=== PATIENT | male | born 2000 | race Caucasian/White ===

== ENCOUNTER 2018-05-12 18:48 | Emergency (ER) | payer SELFPAY ==
--- NOTE | 2018-05-12 19:30 | ED Physician Documentation ---
Sore Throat/Dental Pain - HISTORIAN Historian: patient, friend - HPI Stated Complaint: Rt ear pain/sore throat Chief Complaint: Sore Throat Onset: days ago (3) Context: denies: Foreign Body, Fractured Tooth, Abscess Associated Symptoms: fever, chills, sore throat, mild, other (occ diarrhea soft brown occ liquid). denies: runny nose, congestion, R ear pain, L ear pain - ROS CONST: no problems. denies: recent illness, eye redness, eye itching CVS/RESP: none. denies: chest pain, shortness of breath, palpitations GI/: denies: problems urinating, nausea, vomiting NEURO/PSYCH: none. denies: headache, anxiety - PAST HX Past History: other (bronchitis strept throat) Immunizations: UTD Allergies/Adverse Reactions: Allergies Allergy/AdvReac Type Severity Reaction Status Date / Time No Known Allergies Allergy Verified 05/12/18 19:23 Home Medications: Ambulatory Orders Medication Instructions Recorded NK 05/12/18 - SOCIAL HX Smoking History: cigarettes Alcohol Use: none Drug Use: none - FAMILY HX Family History: No - VITAL SIGNS Vital Signs: Vital Signs Temp Pulse Resp BP Pulse Ox 98.5 F 64 14 112/68 97 05/12/18 18:49 05/12/18 20:49 05/12/18 20:49 05/12/18 20:49 05/12/18 20:49 - REVIEWED ASSESSMENTS Nursing Assessment Reviewed: Yes Vitals Reviewed: Yes ED Results Lab/Radiology - Lab Results Lab Results: Lab Results 05/12/18 19:28 Group A Strep Screen Negative (NEGATIVE) - Radiology Radiology Impressions: RAPID STRET = NEG - Orders Orders: ED Orders Category Date Time Status Rapid Strep [GRP A STREP SCREEN] Stat Lab 05/12/18 19:28 Completed THROAT CULTURE Stat Lab 05/12/18 19:28 Completed Sore throat Physical Exam - EXAM General Appearance: mild distress Head/Neck: head nml inspection Eyes: eyes nml inspection, PERRL, pain of sinuses Mouth/Throat: lips nml, gums nml, pharynx nml, no air way problems Ear/Nose: nml inspection. No: TM erythema, loss of TM landmarks Respiratory: breath sounds nml. No: no resp. distress, respiratory distress CVS: reg. rate & rhythm, heart sounds nml Abdomen: soft, non-tender Extremities: non-tender, nml ROM Skin: warm/dry, normal color. No: cyanosis, diaphoresis, jaundice Neuro/Psych: oriented x3 Discharge Clincal Impression: VIRAL PHARYGITIS Referrals: Primary Doctor,No [Primary Care Provider] - 2 Days Comments: HOME FLUIDS REST AVOID [id number] EXPOSURE Condition: Good Disposition: 01 HOME, SELF-CARE Decision to Admit: NO Decision Time: 20:15
[2018-05-12 20:53] VITALS: BP 112/68
== END 2018-05-12 20:15 | disposition home or self-care (01) ==
LOC: ED 18:48
DX: J02.8 Acute pharyngitis due to other specified organisms (principal); Z72.0 Tobacco use
CPT/HCPCS: 87070; 87880; 99282; 99283

== ENCOUNTER 2018-05-21 16:39 | Emergency (ER) | payer SELFPAY ==
--- NOTE | 2018-05-21 18:01 | ED Physician Documentation ---
General Adult - HISTORIAN Historian: patient - HPI Stated Complaint: Recurring episodes of non-specific chills/chest aches/side pains that resol Chief Complaint: General Adult Further Comments: yes (17 year old male patient presents with complaint of chills, dizziness and aches. Patient states he got up this morning and played video games for less than an hour, began feeling dizzy, weak, with chills. States he ate half a taco and felt better. came to ER for evaluation.) - ROS CONST: weakness. denies: weight loss (denies) EYES/ENT: none CVS/RESP: none GI/: none MS/SKIN/LYMPH: none NEURO/PSYCH: headache - PAST HX Past History: other (history of hypoglycemia) Allergies/Adverse Reactions: Allergies Allergy/AdvReac Type Severity Reaction Status Date / Time No Known Allergies Allergy Verified 05/21/18 17:14 Home Medications: Ambulatory Orders Medication Instructions Recorded NK 05/12/18 - SOCIAL HX Smoking History: cigarettes - FAMILY HX Family History: No - VITAL SIGNS Vital Signs: Vital Signs Temp Pulse Resp BP Pulse Ox 98.8 F 99 H 14 109/46 99 05/21/18 16:40 05/21/18 16:40 05/21/18 16:40 05/21/18 16:40 05/21/18 16:40 - REVIEWED ASSESSMENTS Nursing Assessment Reviewed: Yes Vitals Reviewed: Yes ED Results Lab/Radiology - Orders Orders: ED Orders Category Date Time Status Chem Sticks Med 05/21/18 18:00 Ordered 1 each MC PRN General Adult Physical Exam - PHYSICAL EXAM GENERAL APPEARANCE: [id number] N EENT: eye inspection normal, ENT inspection normal, pharynx normal, no signs of dehydration, ZION, no nystagmus, TM's nml RESPIRATORY: no resp distress, chest non-tender, breath sounds normal CVS: reg rate & rhythm (sinus martin on monitor), heart sounds normal, equal pulses, no murmur, no gallop, PMI nml, no JVD, no friction rub SKIN: normal color, warm/dry, NR, INT, PAL, DR EXTREMITIES: non-tender, normal range of motion, no evidence of injury, no edema, J, CONCESSION STAND ATTENDANT NEURO: oriented X3, CN's nml as tested, motor nml, sensation nml, mood/affect nml Discharge Clincal Impression: Hypoglycemia Referrals: Primary Doctor,No [Primary Care Provider] - 2 Days Additional Instructions: Eat 3 meals a day; especially breakfast. Drink juice and follow with a protein snack such as peanut butter or cheese when you have episodes of dizziness, weakness and diaphoresis. Condition: Stable Disposition: 01 HOME, SELF-CARE Decision to Admit: NO Decision Time: 18:01
[2018-05-21 20:01] VITALS: BP 112/74
== END 2018-05-21 18:35 | disposition home or self-care (01) ==
LOC: ED 16:39
DX: E16.2 Hypoglycemia, unspecified (principal)
CPT/HCPCS: 99282; 99283

== ENCOUNTER 2018-05-29 23:54 | Emergency (ER) | payer SELFPAY ==
[2018-05-30] MEDS ORDERED: ONDANSETRON HCL/PF 4 MG/ 2ML VIAL IVP ONE (00:20)
[2018-05-30] MEDS ORDERED: 0.9 % SODIUM CHLORIDE 1,000 ML IV ONE (00:20)
[2018-05-30] MEDS ORDERED: MAGNESIUM CITRATE 296 ML BOTTLE PO ONE (01:46)
--- NOTE | 2018-05-30 03:20 | ED Physician Documentation ---
General Adult - HISTORIAN Historian: patient - HPI Stated Complaint: constipation Chief Complaint: General Adult Onset: days ago (4) Timing: still present Severity: moderate Further Comments: yes (Pt is a 17 yo male with c/o constipation and no bm x 4 days. Pt does not have a very healthful diet due to lack of money and eats numerous peanut butter sandwiches. Pt has had some nausea after 4 days without bm and he has diffuse abd pain.) - ROS CONST: other (malaise) EYES/ENT: none CVS/RESP: none GI/: abdominal pain, other (severe constipation) MS/SKIN/LYMPH: none - PAST HX Past History: none Other History: none Allergies/Adverse Reactions: Allergies Allergy/AdvReac Type Severity Reaction Status Date / Time No Known Allergies Allergy Verified 05/30/18 00:10 Home Medications: Ambulatory Orders Medication Instructions Recorded NK 05/12/18 - SOCIAL HX Smoking History: cigarettes Alcohol Use: occasionally Drug Use: marijuana - FAMILY HX Family History: No - VITAL SIGNS Vital Signs: Vital Signs Temp Pulse Resp BP Pulse Ox 98.1 F 96 H 16 137/83 97 05/29/18 23:54 05/29/18 23:54 05/29/18 23:54 05/29/18 23:54 05/29/18 23:54 - REVIEWED ASSESSMENTS Nursing Assessment Reviewed: Yes Vitals Reviewed: Yes Progress - Progress Progress: NS 1 L IVF Zofran 4 mg IV x-ray abdomen: Increased stool in the colon. Magnesium Citrate 1 bottle Pt had good bm, sx resolved. ED Results Lab/Radiology - Orders Orders: ED Orders Category Date Time Status Place IV Lock 1T Care 05/30/18 01:00 Active ABDOMEN 1VIEW [RAD] Stat Exams 05/30/18 Taken CBC/PLATELET/DIFF Routine Lab 05/30/18 00:35 Received CMP Routine Lab 05/30/18 00:35 Received 0.9 % Sodium Chloride [Normal Saline] 1,000 ml Med 05/30/18 00:20 Discontinued IV Q1H Magnesium Citrate [Citrate of Magnesia] Med 05/30/18 01:46 Discontinued 296 ml PO NOW ONE Ondansetron HCl/Pf [Zofran 4 mg/2 ml] Med 05/30/18 00:20 Discontinued 4 mg IVP NOW ONE General Adult Physical Exam - PHYSICAL EXAM GENERAL APPEARANCE: moderate distress (thin body habitus) EENT: pharynx normal, dry mucous membranes NECK: normal inspection, supple RESPIRATORY: no resp distress, chest non-tender, breath sounds normal CVS: reg rate & rhythm, heart sounds normal ABDOMEN: soft, no organomegaly, decreased BS BACK: normal inspection, no CVA tenderness SKIN: warm/dry, normal color EXTREMITIES: non-tender, normal range of motion, no evidence of injury NEURO: oriented X3, motor nml, sensation nml Discharge Clincal Impression: Constipation Qualifiers: Constipation type: unspecified constipation type Qualified Code(s): K59.00 - Constipation, unspecified Referrals: Primary Doctor,No [Primary Care Provider] - Condition: Good Disposition: 01 HOME, SELF-CARE Decision to Admit: NO Decision Time: 03:25
[2018-05-30 03:46] VITALS: BP 124/54
--- NOTE | 2018-05-30 03:46 | Diagnostic Imaging Report ---
POLO WILLIAMSON [facility] [address] [facility] [address] [address] Report Submission Date: May 30, 2018 1:18:13 AM [employer] Patient Study Name: ANTOINE CARRILLO Date: May 30, 2018 12:30:12 AM [employer] Modality Type: DX Gender: M Description: ABDOMEN 1 VIEW : 98 Institution: [facility] Physician: POLO WILLIAMSON One view abdomen Clinical history: Left lower quadrant pain. Constipation. Findings: Examination of the abdomen in single supine view demonstrates gas and stool in the colon. There is no obstruction. Visualized visceral silhouettes within normal limits. There are no unusual intra-abdominal calcifications. Impression: 1. Negative abdomen. Electronically signed on May 30, 2018 1:18:13 AM [employer] by: Sigifredo BOOTHE
[2018-05-30 08:48] LABS: eGFR (Non-African) > 60
[2018-05-30 08:49] LABS: MEAN CORPUSCULAR HEMOGLOBIN 29.2 pg (28.0-34.0)
[2018-05-30 08:50] LABS: BASOPHILS % 0.4 (0.0-1.5); EOSINOPHILS % 1.3 % (0.0-6.8); MONOCYTES % 3.7 % (0.0-11.0); NEUTROPHILS # 6.2 # k/uL (1.4-7.7)
== END 2018-05-30 03:27 | disposition home or self-care (01) ==
LOC: ED 23:54
DX: K59.00 Constipation, unspecified (principal)
CPT/HCPCS: 36415; 74018; 80053; 85025; 96374; 99283; 99284; J2405; J7030; S1016